=== PATIENT | female | born 1950 | race Two or more races ===

== ENCOUNTER 2017-04-15 16:00 | Inpatient (IN) | payer MEDICARE, MEDICAID ==
[~2017-04-15] VITALS: Ht 154.9 cm; Wt 52.6 kg
[2017-04-15] MEDS ORDERED: DIAZ5TAB4 PO (16:11)
[2017-04-15] MEDS ORDERED: NITROGLYCERIN OINT 1 GM PACKET TP ONE ×2 (16:15→16:30)
--- NOTE | 2017-04-15 16:24 | NUR ---
PATIENT WAS SEEN BY DR GREGORY FOR C/O CHEST PAIN AND "PANIC ATTACK". 12 LEAD EKG DONE. IV PLACED, PATIENT ON CONTINUOUS MONITORING.
[2017-04-15 16:30] LABS: BASOPHILS # (AUTO) 0.1 K/uL (0.0-8.0); BASOPHILS % (AUTO) 0.7 % (0.0-2.0); EOSINOPHILS # (AUTO) 0.1 K/uL (0.0-0.7); EOSINOPHILS % (AUTO) 0.9 % (0.0-7.0); HEMATOCRIT 35.6 % (37-47); HEMOGLOBIN 11.9 G/DL (12.0-16.0); LYMPHOCYTES # (AUTO) 2.6 K/UL (0.8-4.8); LYMPHOCYTES % (AUTO) 36.9 % (20.5-51.5); MEAN CORPUSCULAR HGB CONC 34 g/dL (32.0-37.0); MEAN CORPUSCULAR VOLUME 89.5 FL (81.0-99.0); MONOCYTES # (AUTO) 0.6 K/UL (0.1-1.30); MONOCYTES % (AUTO) 8.3 % (0.0-11.0); NEUTROPHILS # (AUTO) 3.8 K/UL (1.8-8.9); NEUTROPHILS % (AUTO) 53.2 % (38.5-71.5); PLATELET COUNT (AUTO) 232 K/UL (150-450); RED BLOOD CELL COUNT(AUTO) 3.98 MIL/UL (4.2-5.4); WHITE BLOOD COUNT (AUTO) 7.2 K/UL (4.0-11.2)
[2017-04-15 16:37] LABS: CREATININE 0.8 mg/dL (0.6-1.3); POTASSIUM 3.3 mmol/L (3.5-5.1)
[2017-04-15 16:43] LABS: BILIRUBIN,DIRECT 0.1 mg/dL (0.0-0.2); BILIRUBIN,TOTAL 0.3 mg/dL (0.2-1.0); TOTAL PROTEIN, SERUM 6.8 g/dL (6.4-8.2)
--- NOTE | 2017-04-15 18:12 | NUR ---
PATIENT STATES CHEST PAIN IS MINIMAL. PT AWARE OF PENDING ADMISSION. AWAITING FOR ROOM ASSIGNEMNT TO TELE FLOOR.
--- NOTE | 2017-04-15 18:40 | NUR ---
NEW PATIENT FROM ER TO ROOM 208 ALERT COOPERATE WELL NO SOB OR CHEST PAIN VS TAKEN STABLE CALL DODGE IN REACH AND INSTRUCTION TO CALL WHEN NEEDED
[2017-04-15] MEDS: METOPROLOL TARTRATE 50 MG TABLET PO SCH ×2 (18:45→20:31)
[2017-04-15] MEDS ORDERED: MORPHINE SULFATE 2 MG/1 ML DISP.SYRIN IV PRN (18:45)
[2017-04-15] MEDS ORDERED: ONDANSETRON 4 MG/2 ML VIAL IV PRN (18:45)
[2017-04-15] MEDS ORDERED: NITROGLYCERIN 0.4 MG/TAB BOTTLE SL PRN (18:45)
[2017-04-15] MEDS ORDERED: DIAZEPAM 5 MG TABLET PO PRN (18:45)
[2017-04-15] MEDS ORDERED: DOCUSATE SODIUM 100 MG CAPSULE PO PRN (18:45)
--- NOTE | 2017-04-15 19:30 | NUR ---
admitted new patient alert,oriented x3,no chest pain at present times, NSR on monitor,belongings sent home with boy friend.
[2017-04-15 20:00] VITALS: BP 147/85
[2017-04-15] MEDS: ASPIRIN 81 MG TAB.CHEW PO SCH (20:30)
--- NOTE | 2017-04-15 21:00 | NUR ---
bp 125/73, heart rate 63 SR, patient requested to hold Metoprolol,stated feels ok, no sob,no chest pain or nausea.
--- NOTE | 2017-04-15 22:25 | NUR ---
patient seen by ,KCL 40 meq po given.for K 3.3
[2017-04-15] MEDS ORDERED: POTASSIUM CHLORIDE 20 MEQ TAB.PRT.SR PO ONE (22:30)
[2017-04-15] MEDS ORDERED: POTASSIUM CHLORIDE 20 MEQ TAB.PRT.SR ONE (22:36)
[2017-04-16] VITALS: BP 111/65
[2017-04-16 04:00] VITALS: BP 127/71
--- NOTE | 2017-04-16 06:37 | NUR ---
PATIENT SLEPT WELL, NO ACUTE DISTRESS,NO SOB/CHEST PAIN NOTED,NSR ON TELE.BP WNL/STABLE.
[2017-04-16 07:20] LABS: BASOPHILS % (AUTO) 0.8 % (0.0-2.0); EOSINOPHILS # (AUTO) 0.1 K/uL (0.0-0.7); EOSINOPHILS % (AUTO) 2.4 % (0.0-7.0); HEMATOCRIT 35.2 % (37-47); HEMOGLOBIN 12.1 G/DL (12.0-16.0); LYMPHOCYTES # (AUTO) 1.9 K/UL (0.8-4.8); LYMPHOCYTES % (AUTO) 35.7 % (20.5-51.5); MEAN CORPUSCULAR HGB CONC 34 g/dL (32.0-37.0); MEAN CORPUSCULAR VOLUME 90.2 FL (81.0-99.0); MONOCYTES # (AUTO) 0.4 K/UL (0.1-1.30); MONOCYTES % (AUTO) 8.2 % (0.0-11.0); NEUTROPHILS # (AUTO) 2.9 K/UL (1.8-8.9); NEUTROPHILS % (AUTO) 52.9 % (38.5-71.5); PLATELET COUNT (AUTO) 231 K/UL (150-450)
[2017-04-16 07:26] LABS: CREATININE 0.8 mg/dL (0.6-1.3); MAGNESIUM 2.3 mg/dL (1.8-2.4); PHOSPHOROUS 3.2 mg/dL (2.5-4.9); POTASSIUM 4.2 mmol/L (3.5-5.1)
[2017-04-16 07:27] LABS: WHITE BLOOD COUNT (AUTO) 5.3 K/UL (4.0-11.2)
[2017-04-16] MEDS: METOPROLOL TARTRATE 50 MG TABLET PO SCH ×2 (08:30→17:00)
[2017-04-16] MEDS: ASPIRIN 81 MG TAB.CHEW PO SCH (08:30)
--- NOTE | 2017-04-16 08:30 | NUR ---
RESTING QUIET NO SOB OR CHEST PAIN EAT BREAKFAST MOD AMT ,CALL LIGHT WITHIN REACH
--- NOTE | 2017-04-16 09:00 | NUR ---
[facility] CARDIOGRAM PERFORM AT BEDSIDE BRIGETTE PROCEDURE WELL
[2017-04-16 11:01] VITALS: BP 144/87
--- NOTE | 2017-04-16 12:00 | NUR ---
DR Alex ALCANTARA SEE PATIEN AND ORDER IN CHART FOR LAB IN AM
[2017-04-16] MEDS ORDERED: SIMETHICONE 80 MG TAB.CHEW PO PRN (14:30)
[2017-04-16 15:30] VITALS: BP 132/71
--- NOTE | 2017-04-16 16:00 | NUR ---
DR CURRIE SEEN PATIENT AND STATE SHE OK TO D/C AND F/U WITH [facility] FEED [employer]IXER CALL FOR APPIONTMENT DR Alex ALCANTARA WAS CALL AND INFORM OF PT CONDITION STATE SHE WILL D/C PATIENT HOME TODAY
--- NOTE | 2017-04-16 16:30 | NUR ---
D/C INSTRUCTION REGARDING F/U WITH PMD AND REEXAMINER INSTRUCTION AND CONTINUE HOME MEDICINE EDUCATION PK GIVE ,UNDERSTAND AND SIGNS D/C SHEET HL WAS D/C PRIOR DISCHARGE HOME TODAY REFUSED PHAMACY TO INSTRUCTION HOME MEDICINE STATE I KNOW
[2017-04-16 17:00] VITALS: BP 124/60
--- NOTE | 2017-04-16 17:00 | NUR ---
D/C HOME CONDITION STABLE ACCOMPANIES WITH FAMILY /FRIEND NO PAIN OR SOB
[2017-04-16] MEDS ORDERED: Nitroglycerin Sl SL (20:49)
[2017-04-16] MEDS ORDERED: METO50TA3 PO (20:49)
[2017-04-16] MEDS ORDERED: ASPI81TA31 PO (20:49)
== END 2017-04-16 17:00 | disposition home or self-care (01) | DRG 311 ==
LOC: ER 16:00 → TELE 18:38
PROVIDERS: ADMIT Internal Medicine; ATTEND Internal Medicine
DX: I20.0 Unstable angina (principal); E78.5 Hyperlipidemia, unspecified; E87.6 Hypokalemia; D64.9 Anemia, unspecified; F41.0 Panic disorder [episodic paroxysmal anxiety]; Z87.891 Personal history of nicotine dependence; Z79.899 Other long term (current) drug therapy; K21.9 Gastro-esophageal reflux disease without esophagitis; R94.31 Abnormal electrocardiogram [ECG] [EKG]
CPT/HCPCS: 36415; 70030-TC; 71010; 83735; 84100; 85025; 85730; 93005; 93307; A4663